=== PATIENT | female | born 1990 | race Caucasian/White ===

== ENCOUNTER 2019-07-09 17:19 | Emergency (ER) | payer OTHER, SELFPAY ==
[2019-07-09 17:32] VITALS: BP 123/77; PULSE 87; RESP 16; TEMP 36.9; O2SAT 98
== END 2019-07-09 17:40 | disposition left against medical advice (07) ==
PROVIDERS: Emergency Provider Nurse Practitioner Family
DX: Z53.21 Procedure and treatment not carried out due to patient leaving prior to being seen by health care provider (principal)
CPT/HCPCS: 99199

== ENCOUNTER 2019-07-09 18:11 | Emergency (ER) | payer OTHER, SELFPAY ==
[2019-07-09 18:14] VITALS: BP 141/97; PULSE 98; RESP 20; TEMP 36.6; O2SAT 96
[2019-07-09 18:25] LABS: Basophils Absolute Auto 0.1 K/mm3 (0.0-0.1); Basophils Percent Auto 0.4 % (0.2-1.2); Eosinophils Absolute Auto 0.1 K/mm3 (0-0.3); Eosinophils Percent Auto 0.5 % (0-4.4); Hemoglobin 16.5 g/dL (12.0-15.0); Immature Granulocyte Absolute 0.06 K/mm3 (0.00-0.031); Immature Granulocyte Percent A 0.5 % (0-0.5); Lymphocytes Absolute Auto 2.31 K/mm3 (0.9-3.2); Lymphocytes Percent Auto 19.4 % (18.3-44.2); Mean Corpuscular HGB Conc 34.4 g/dl (32-36); Mean Corpuscular Hemoglobin 29.7 pg (26-34); Mean Corpuscular Volume 86.5 fl (80-100); Mean Platelet Volume 9.2 fl (7.4-10.4); Monocytes Absolute Auto 0.9 K/mm3 (0.1-0.6); Monocytes Percent Auto 7.4 % (2.6-8.5); Neutrophils Absolute Auto 8.6 K/mm3 (1.3-6.7); Neutrophils Percent Auto 71.8 % (45.5-73.1); Platelet Count Result 353 k/mm3 (150-375); Red Blood Count 5.55 M/mm3 (4.2-5.4); Red Cell Distribution Width 11.9 % (11.5-14.5); White Blood Count 11.9 K/mm3 (4.5-10.0)
--- NOTE | 2019-07-09 18:33 | ED.GENADULT ---
HPI - General Adult General Chief complaint: Nausea/Vomiting/Diarrhea Stated complaint: N/V/D Time Seen by Provider: 07/09/19 18:22 Source: patient and family Mode of arrival: ambulatory Limitations: no limitations History of Present Illness HPI narrative: Patient is a 29-year-old female who presents to emergency department for evaluation of nausea vomiting diarrhea that began on Saturday and has persisted for the last several days went to urgent care today was referred to emergency department for evaluation. Patient notes multiple episodes of emesis and liquid stools with cramping throughout the abdomen with fatigue. Patient denies rectal bleeding hematochezia or melena. Patient has not taken anything for her symptoms and presents per private vehicle. Denies any current pain Related Data Home Medications Medication Instructions Recorded Confirmed amlodipine [Norvasc] 10 mg PO DAILY 07/09/19 07/09/19 cetirizine mg 07/09/19 citalopram [Celexa] 10 mg PO DAILY 07/09/19 07/09/19 lisinopril-hydrochlorothiazide tablet 07/09/19 ondansetron HCl [Zofran] 4 mg PO Q6H 07/09/19 Allergies Allergy/AdvReac Type Severity Reaction Status Date / Time codeine Allergy Mild Rash Verified 07/09/19 18:26 Review of Systems Review of Systems: Narrative: CONSTITUTIONAL: Denies fever, chills, or sweats. Positive for fatigue EYES: Denies redness, or discharge. ENT: Denies rhinorrhea, congestion, sore throat, or otalgia. CARDIOVASCULAR: Denies chest pain RESPIRATORY: Denies cough or dyspnea. GENITOURINARY: Denies dysuria or hematuria. SKIN: Denies rash or itching. MUSCULOSKELETAL: Denies back pain, joint pain, or myalgia. NEUROLOGIC: Denies headache, dizziness, or weakness. [facility] Surgical History Surgical History (Updated 07/09/19 @ 20:23 by Lazaro Contreras PA-C) Hx of cholecystectomy Social History Social History Gender identity (if verbalized by the patient): Female Exam Narrative: Exam Narrative: GENERAL: Ill-appearing, obese, and in no acute distress. HEAD: Normocephalic, atraumatic. EYES: PERRLA and EOMI. ENT: Nares clear, no rhinorrhea or epistaxis. Mucous membranes moist. Oropharynx without tonsillar hypertrophy exudate or other lesions. NECK: Supple. No adenopathy or masses. CHEST: Clear to auscultation. No respiratory distress. No wheezes rales or rhonchi HEART: Regular rate and rhythm. No murmur heard. Normal peripheral pulses. ABDOMEN: Soft, nontender, nondistended. EXTREMITIES: Normal range of motion. No edema. SKIN: Warm, dry, no rash. NEURO: No focal deficits. Alert and oriented x3. PSYCH: Normal mood and affect. Course Vital Signs Vital signs: Vital Signs Temperature 97.8 F 07/09/19 18:14 Pulse Rate 98 07/09/19 18:14 Respiratory Rate 20 07/09/19 18:14 Blood Pressure 141/97 H 07/09/19 18:14 Pulse Oximetry 96 07/09/19 18:14 Temperature 97.8 F 07/09/19 18:14 Pulse Rate 68 07/09/19 19:32 Respiratory Rate 17 07/09/19 19:32 Blood Pressure 156/103 H 07/09/19 19:32 Pulse Oximetry 100 07/09/19 19:32 Medical Decision Making MDM Narrative Medical decision making narrative: Patient in the room at this time in no distress resting comfortably hydrating tolerating p.o. intake noting that she is feeling much better at this time afebrile nontoxic-appearing no distress made aware of case findings treatment plan and diagnosis agreeing to follow with primary care and provided GI follow-up. Patient with nontender abdominal exams. Urine will be cultured. Patient's liver enzymes can be followed by primary care and also GI referral Vital Signs Vital Signs: Vital Signs Temperature 97.8 F 07/09/19 18:14 Pulse Rate 98 07/09/19 18:14 Respiratory Rate 20 07/09/19 18:14 Blood Pressure 141/97 H 07/09/19 18:14 Pulse Oximetry 96 07/09/19 18:14 Temperature 97.8 F 07/09/19 18:14 Pulse Rate 68 07/09/19 19:32
[2019-07-09 18:36] LABS: Alanine Aminotransferase 127 U/L (4-35); Albumin Level 4.9 g/dL (3.5-5.1); Alkaline Phosphatase 75 U/L (38-126); Aspartate Amino Transferase 104 U/L (14-36); Bilirubin,Total 0.5 mg/dL (0.2-1.3); Blood Urea Nitrogen 13 mg/dL (7-17); Calcium 9.6 mg/dL (8.4-10.2); Carbon Dioxide 20 mmol/L (22-30); Chloride 101 mmol/L (98-107); Estimated CRCL calculation 99 ml/min; Estimated Glomerular Filt Rate > 60; Glucose 103 mg/dL (65-105); Lipase 82 U/L (23-300); Potassium 3.5 mmol/L (3.4-5.0); Sodium 136 mmol/L (137-145)
[2019-07-09] MEDS: SODIUM CHLORIDE 0.9% IV 1,000 ML 999 ML IV CONT (18:44)
[2019-07-09] MEDS: ONDANSETRON INJ 4 MG/2 ML VIAL IV PUSH (18:45)
[2019-07-09] MEDS: FAMOTIDINE 20 MG/2 ML VIAL IV PUSH (18:47)
[2019-07-09 19:02] VITALS: BP 134/101; BP 150/118; PULSE 69; PULSE 90
--- NOTE | 2019-07-09 19:10 | PC.NURSE ---
Bedside report to oncoming RNglen.
[2019-07-09 19:12] LABS: Add Urine Microscopic? YES; Appearance Urine Cloudy (Clear); Bacteria Urine Trace /hpf; Bilirubin Urine Negative (Negative); Blood Urine 1+ (Negative); Color Urine Amber (Yellow); Glucose Urine UA Negative (Negative); Ketones Urine Trace mg/dL (Negative); Leukocyte Esterase Ur Trace LEU/UL (Negative); Mucus Urine Moderate /lpf; Nitrate Urine Negative (Negative); Protein Urine 2+ mg/dL (Negative); Squamous Epithelial Cell Urine Many /hpf (Few); Urobilinogen Urine Negative mg/dL (<2.0)
[2019-07-09 19:14] LABS: Specific Grav Ur 1.033 (1.001-1.035)
[2019-07-09] MEDS: LACTATED RINGERS 1,000 ML 999 ML IV CONT (19:29)
[2019-07-09] MEDS: METOCLOPRAMIDE HCL INJ 10 MG/2 ML VIAL IV PUSH (19:29)
[2019-07-09 19:32] VITALS: BP 156/103; PULSE 68; RESP 17; O2SAT 100
[2019-07-09 20:51] VITALS: BP 135/91; PULSE 64; RESP 18; O2SAT 100
--- NOTE | 2019-07-13 09:08 | PC.NURSE ---
LATE ENTRY This note is being entered to document information to the patient's record. The following information was omitted on 07/09/2019, by Nicole Loredo RN. 1,000 MLS LR infused with stop time 2028, 0 volume left in container./SM
== END 2019-07-09 20:52 | disposition home or self-care (01) ==
PROVIDERS: Emergency Medicine; Emergency Provider Emergency Medicine
DX: R10.9 Unspecified abdominal pain (principal)
CPT/HCPCS: 36415; 80053; 81001; 81025; 83690; 85025; 87086; 96361; 96365; 96375; 99284; J0131; J2405; J2765; J7030; J7120

== ENCOUNTER 2019-11-06 09:58 | Outpatient (CLI) | payer OTHER, SELFPAY ==
--- NOTE | ~2019-11-06 | US_ITS ---
EXAMINATION: US right upper quadrant DATE: 11/06/2019 10:23 INDICATION: Steatosis of liver. TECHNIQUE: Multiple grayscale and Doppler ultrasound images of the abdomen were obtained. COMPARISON: CT abdomen and pelvis 12/19/2016 FINDINGS: The visualized portions of the head and body of the pancreas are normal. The liver is kade l without focal lesion. No liver surface nodularity. There is normal flow in main portal vein. The ga llbladder is absent. The common duct is normal and measures 3 mm. IMPRESSION: 1. Normal right upper quadrant ultrasound status post cholecystectomy. Reviewed, dictated and finalized at location A.
[2019-11-06 10:43] LABS: Basophils Absolute Auto 0.1 K/mm3 (0.0-0.1); Basophils Percent Auto 0.5 % (0.2-1.2); Eosinophils Absolute Auto 0.2 K/mm3 (0-0.3); Eosinophils Percent Auto 1.5 % (0-4.4); Hematocrit 44.5 % (37.0-47.0); Immature Granulocyte Absolute 0.05 K/mm3 (0.00-0.031); Immature Granulocyte Percent A 0.4 % (0-0.5); Lymphocytes Percent Auto 22.8 % (18.3-44.2); Mean Corpuscular HGB Conc 33.7 g/dl (32-36); Mean Corpuscular Hemoglobin 29.9 pg (26-34); Mean Corpuscular Volume 88.6 fl (80-100); Mean Platelet Volume 8.9 fl (7.4-10.4); Monocytes Absolute Auto 0.8 K/mm3 (0.1-0.6); Neutrophils Absolute Auto 7.7 K/mm3 (1.3-6.7); Neutrophils Percent Auto 67.8 % (45.5-73.1); Platelet Count Result 287 k/mm3 (150-375); Red Blood Count 5.02 M/mm3 (4.2-5.4); Red Cell Distribution Width 12.3 % (11.5-14.5); White Blood Count 11.4 K/mm3 (4.5-10.0)
[2019-11-06 11:02] LABS: Alanine Aminotransferase 22 U/L (4-35); Albumin Level 4.3 g/dL (3.5-5.1); Alkaline Phosphatase 72 U/L (38-126); Aspartate Amino Transferase 31 U/L (14-36); Bilirubin,Total 0.4 mg/dL (0.2-1.3); Blood Urea Nitrogen 9 mg/dL (7-17); Calcium 8.7 mg/dL (8.4-10.2); Carbon Dioxide 21 mmol/L (22-30); Chloride 106 mmol/L (98-107); Estimated Glomerular Filt Rate > 60; Glucose 102 mg/dL (65-105); Potassium 3.7 mmol/L (3.4-5.0); Sodium 136 mmol/L (137-145)
[2019-11-06 12:17] LABS: Hepatitis B Surface Antigen Negative (Negative)
[2019-11-06 12:26] LABS: Hepatitis B Core IgM Result Negative (Negative)
[2019-11-06 12:34] LABS: Hepatitis C Virus Antibody Negative (Negative)
[2019-11-06 12:47] LABS: HAV RESULT Negative (Negative)
== END 2019-11-06 09:59 | disposition home or self-care (01) ==
PROVIDERS: PCP Physician Assistant; Visit Provider Physician Assistant
DX: K76.0 Fatty (change of) liver, not elsewhere classified (principal)
CPT/HCPCS: 36415; 76705; 80053; 80074; 85025

== ENCOUNTER 2021-01-05 20:30 | Emergency (ER) | payer OTHER, SELFPAY ==
--- NOTE | ~2021-01-05 | XR_ITS ---
EXAMINATION: XR knee LT 3V DATE: 01/05/2021 22:18 INDICATION: Left knee pain and swelling. TECHNIQUE: 3 views of left knee were obtained. COMPARISON: None. FINDINGS: Bone alignment is normal. No fracture. Joint spaces are well maintained. There is no knee j oint effusion. IMPRESSION: 1. Normal left knee. Reviewed, dictated and finalized at location A. IMPRESSION: 1. Normal left knee.
[2021-01-05 20:45] VITALS: BP 159/89; PULSE 60; RESP 15; TEMP 36.9; O2SAT 100
--- NOTE | 2021-01-05 20:52 | PC.NURSE ---
Pedal pulse present on left.
[2021-01-05 21:39] VITALS: BP 159/89; PULSE 60; RESP 15; TEMP 36.9; O2SAT 100
--- NOTE | 2021-01-05 21:57 | ED.EXTPRO ---
HPI - Extremity Problem General Chief complaint: Extremity Problem,Nontraumatic Stated complaint: Left knee swelling and pain Time Seen by Provider: 01/05/21 21:57 History of Present Illness HPI Narrative: Left knee pain for the past month. Started after she noted swelling to the lateral side of the knee. The swelling and pain gradually spread throughout the knee and thigh. She has pain with knee extension and bearing weight. She was seen at [facility] today. She was told that her x-ray was negative and prescribed ibuprofen and given crutches. Related Data Home Medications Medication Instructions Recorded Confirmed amlodipine [Norvasc] 10 mg PO DAILY 07/09/19 07/09/19 cetirizine mg 07/09/19 citalopram [Celexa] 10 mg PO DAILY 07/09/19 07/09/19 lisinopril-hydrochlorothiazide tablet 07/09/19 ondansetron HCl [Zofran] 4 mg PO Q6H 07/09/19 Allergies Allergy/AdvReac Type Severity Reaction Status Date / Time codeine Allergy Mild Rash Verified 01/05/21 21:42 Review of Systems Review of Systems: All systems reviewed & are unremarkable except as noted in HPI and below Constitutional: Constitutional: Denies fever(s) Cardiovascular: Cardiovascular: Denies chest pain Respiratory: Respiratory: Denies dyspnea Musculoskeletal: Musculoskeletal: Denies back pain Integumentary/Breasts: Skin/Breast: Denies rash Neurologic: Denies numbness and Denies weakness [facility] Surgical History Surgical History Hx of cholecystectomy Social History Social History Gender identity (if verbalized by the patient): Female Exam Const: General: no acute distress and alert Orientation/consciousness: patient oriented x3 HENMT: Head: normal to inspection Resp: Effort & Inspection: normal respiratory effort Cardio: Other: 2+ left DP Skin: General skin exam: normal color Rashes: no rashes Wounds: no wounds Neuro: General: patient oriented x3 and no focal motor deficits Speech: normal speech Extrem: Other: Mild swelling to lateral portion of left knee. Full ROM. Course Vital Signs Vital signs: Vital Signs Temperature 36.9 C 01/05/21 20:45 Pulse Rate 60 01/05/21 20:45 Respiratory Rate 15 01/05/21 20:45 Blood Pressure 159/89 H 01/05/21 20:45 Pulse Oximetry 100 01/05/21 20:45 Temperature 36.9 C 01/05/21 21:39 Pulse Rate 60 01/05/21 21:39 Respiratory Rate 15 01/05/21 21:39 Blood Pressure 159/89 H 01/05/21 21:39 Pulse Oximetry 100 01/05/21 21:39 MDM - Extremity (Nontraumatic) MDM Narrative Medical decision making narrative: No acute findings on x-ray. Benign exam. Imaging Data Radiologist's impression: ITS Impressions Knee X-Ray 01/05/21 22:24 IMPRESSION: 1. Normal left knee. Discharge Plan Discharge Clinical Impression: Knee pain Qualifiers: Chronicity: unspecified Laterality: left Qualified Code(s): M25.562 - Pain in left knee Patient Disposition: Home, Self-Care Condition: Stable Instructions: Knee Pain (ED) Prescriptions: No Action citalopram [Celexa] 10 mg Tablet 10 mg PO DAILY RF: 0 amlodipine [Norvasc] 10 mg Tablet 10 mg PO DAILY RF: 0 cetirizine 10 mg tablet RF: 0 ondansetron HCl [Zofran] 4 mg Tablet 4 mg PO Q6H RF: 0 lisinopril-hydrochlorothiazide 10-12.5 mg tablet RF: 0 promethazine 25 mg tablet 25 mg PO Q6H PRN (Reason: nausea and vomiting) Qty: 10 RF: 0 famotidine [Pepcid AC] 20 mg tablet 20 mg PO BID Qty: 14 RF: 0 Follow-up/Referrals: Loren,SAMIR Mart [Primary Care Provider] -
== END 2021-01-05 23:10 | disposition home or self-care (01) ==
PROVIDERS: Emergency Provider Emergency Medicine; PCP Physician Assistant; Referring Provider Emergency Medicine
DX: M25.562 Pain in left knee (principal)
CPT/HCPCS: 73562; 99283

== ENCOUNTER 2021-04-08 14:13 | Outpatient (CLI) | payer OTHER, SELFPAY ==
--- NOTE | ~2021-04-08 | MR_ITS ---
EXAMINATION: MR knee LT wo con DATE: 04/08/2021 15:25 INDICATION: Tear of lateral meniscus. TECHNIQUE: Magnetic resonance imaging (MRI) of the left knee was performed without intravenous contra st. Sequences included axial PD-weighted FS FSE, coronal PD-weighted FSE and PD-weighted FS FSE, sagi ttal PD-weighted FSE, and sagittal T2-weighted FS FSE. COMPARISON: Left knee radiographs 01/05/2021 FINDINGS: Medial compartment: Medial meniscus is normal. Medial compartment cartilage is normal, but motion artifact mildly decreas es sensitivity. Lateral compartment: Lateral meniscus is normal. Lateral compartment cartilage is normal, but motion artifact mildly decre ases sensitivity. Patellofemoral compartment: There is partial-thickness cartilage loss of medial trochlea. Patellar cartilage is normal. Ligaments and tendons: Anterior and posterior cruciate ligaments are normal. Medial collateral ligament and lateral collater al ligament complex are normal. The extensor mechanism is normal. Fluid: There is a small knee joint effusion. There is mild superficial infrapatellar bursitis. IMPRESSION: 1. Mild chondrosis of medial trochlea. 2. Small knee joint effusion. Reviewed, dictated and finalized at location A. 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
== END 2021-04-08 14:14 | disposition home or self-care (01) ==
PROVIDERS: PCP Physician Assistant
DX: S83.282A Other tear of lateral meniscus, current injury, left knee, initial encounter (principal); M70.52 Other bursitis of knee, left knee; M25.462 Effusion, left knee
CPT/HCPCS: 73721

== ENCOUNTER 2021-06-24 13:25 | Outpatient (CLI) | payer OTHER, SELFPAY ==
--- NOTE | ~2021-06-24 | MR_ITS ---
EXAMINATION: MR knee RT wo con DATE: 06/24/2021 14:41 INDICATION: Right knee pain. TECHNIQUE: Magnetic resonance imaging (MRI) of the right knee was performed without intravenous contr ast. Sequences included axial PD-weighted FS FSE, coronal PD-weighted FSE and PD-weighted FS FSE, sag ittal PD-weighted FSE, and sagittal T2-weighted FS FSE. COMPARISON: None. FINDINGS: Medial compartment: Medial meniscus is normal. Medial compartment cartilage is normal. Lateral compartment: Lateral meniscus is normal. There is shallow partial-thickness cartilage loss of femoral condyle invo lving the central articular surface. Tibial cartilage is normal. Patellofemoral compartment: Patellar cartilage is normal. There is shallow partial-thickness cartilage loss of medial trochlea. Ligaments and tendons: The anterior and posterior cruciate ligaments are normal. Medial collateral ligament and lateral jason ateral ligament complex are normal. There is mild patellar tendinopathy. Fluid: There is a small knee joint effusion. There is mild prepatellar and superficial infrapatellar bursiti s. IMPRESSION: 1. Mild chondrosis of lateral and patellofemoral compartments. 2. Small knee joint effusion. Reviewed, dictated and finalized at location A. TS CARTOONIST
== END 2021-06-24 13:26 | disposition home or self-care (01) ==
LOC: ANHIMG 13:28
PROVIDERS: PCP Physician Assistant
DX: M25.461 Effusion, right knee (principal)
CPT/HCPCS: 73721

== ENCOUNTER 2022-07-14 09:35 | Outpatient (CLI) | payer OTHER, SELFPAY ==
[2022-07-14 10:12] LABS: Alanine Aminotransferase 31 U/L (6-35); Albumin Level 4.5 g/dL (3.5-5.1); Alkaline Phosphatase 67 U/L (38-126); Anion Gap 4 mmol/L (8-16); Aspartate Amino Transferase 31 U/L (14-36); Bilirubin,Total 0.4 mg/dL (0.2-1.3); Blood Urea Nitrogen 11 mg/dL (7-17); Calcium 9.1 mg/dL (8.4-10.2); Carbon Dioxide 28 mmol/L (22-30); Chloride 101 mmol/L (98-107); Cholesterol 258 mg/dL (0-200); Estimated Glomerular Filt Rate > 60; Glucose 91 mg/dL (65-110); HDL Direct 55 mg/dL; Sodium 133 mmol/L (137-145); Triglycerides 164 mg/dL (<150)
[2022-07-14 10:23] LABS: LDL Cholesterol Direct 144 mg/dL
[2022-07-14 11:38] LABS: Microalbumin Urine Random 24.4 mg/L (0-16.7)
[2022-07-14 12:00] LABS: Creatinine Urine 405.6 mg/dL
== END 2022-07-14 09:36 | disposition home or self-care (01) ==
LOC: ANHLAB 09:35
PROVIDERS: PCP Physician Assistant; Visit Provider Physician Assistant
DX: I10 Essential (primary) hypertension (principal)
CPT/HCPCS: 36415; 80053; 80061; 82043